=== PATIENT | male | born 1970 | race Caucasian/White ===

== ENCOUNTER 2017-09-27 10:45 | Inpatient (IN) | payer OTHER ==
[~2017-09-27] VITALS: Ht 170.2 cm; Wt 85.8 kg
[2017-09-27] MEDS ORDERED: SODIUM CHLORIDE 0.9% 1000ML 1,000 ML IV ONE ×2 (11:15)
[2017-09-27] MEDS ORDERED: METO25TA56 PO (11:17)
[2017-09-27] MEDS ORDERED: CANA1TAB PO (11:17)
[2017-09-27] MEDS ORDERED: WARF3TAB6 PO (11:17)
[2017-09-27] MEDS ORDERED: FENO145T26 PO (11:17)
[2017-09-27] MEDS ORDERED: LISI40TA PO (11:17)
[2017-09-27] MEDS ORDERED: NVLG (11:17)
[2017-09-27] MEDS ORDERED: ATOR-26 PO (11:17)
[2017-09-27 11:23] LABS: BASO % 0.1 %; BASO ABS # 0.01 K/uL (0-0.2); EOS % 0.1 %; EOS ABS # 0.02 K/uL (0-0.5); HEMATOCRIT 49.6 % (42-52); IG# 0.04 K/uL (0.00-0.02); LYMPH ABS # 0.14 K/uL (1.2-3.4); MEAN CELL VOLUME 85.1 fL (80-100); MEAN CORPUSCULAR HEMOGLOBIN 29.2 pg (25-34); MEAN CORPUSCULAR HGB CONC 34.3 g/dl (32-36); MEAN PLATELET VOLUME 11.3 fL (7.4-10.4); MONO ABS # 0.44 K/uL (0.11-0.59); NEUT % 95.5 %; NEUT ABS # 14.01 K/uL (1.4-6.5); PLATELET COUNT 177 K/uL (130-400); RED CELL DISTRIBUTION WIDTH CV 15.5 % (11.5-14.5); RED CELL DISTRIBUTION WIDTH SD 47.9 fL (36.4-46.3); WHITE BLOOD COUNT 14.66 K/uL (4.8-10.8)
--- NOTE | 2017-09-27 11:23 | EMERGENCY ROOM VISIT NOTE ---
History First contact with patient: 10:57 Chief Complaint: VOMITING Stated Complaint: ILLNESS Nursing Triage Summary: Patient states he woke up this AM and was feeling nauseated , light headed and vomitted once. Patient is a diabetic so he checked his BSG and it was 134. Patient went to work and again vomitted went to be seen at [facility] but was diaphoretic and was sent to the ER for evaluation. Patient also c/o of discomfort in neck and between shoulder blades. Denies chest pain or SOB. History of Present Illness The patient is a 47 year old male who presents to the Emergency Room with complaints of nausea, vomiting and lightheadedness that started this morning. The patient denies any chest pain, difficulty breathing, fever or chills. He did have one bout of diarrhea yesterday. The patient is a type I diabetic. He has an insulin pump. He checked his blood sugar at 6 AM this morning. It was 134. The pump continues to run. 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 Hypertension Social History Smoking Status: Never Smoker Current/Historical Medications Scheduled Atorvastatin (Lipitor), 80 MG PO QPM Canagliflozin (Invokana), 100 MG PO DAILY Fenofibrate (Tricor), 48 MG PO DAILY Insulin Aspart (Novolog), SLIDING SCALE Lisinopril (Prinivil), 40 MG PO DAILY Metoprolol Tartrate (Lopressor) (Lopressor), 25 MG PO BID Warfarin Sod (Jantoven), 3 MG PO DAILY Physical Exam Vital Signs Date Time Temp Pulse Resp B/P (MAP) Pulse Ox O2 Delivery O2 Flow Rate FiO2 09/27/17 14:00 112 18 122/72 97 Room Air 09/27/17 13:01 104 18 112/67 97 Room Air 09/27/17 12:34 104 09/27/17 12:25 101 18 115/59 98 Room Air 09/27/17 11:33 92 18 105/65 97 Room Air 09/27/17 10:48 36.9 92 18 92/55 95 Room Air Physical Exam GENERAL: 47-year-old male, mildly acutely ill in appearance,, nondiaphoretic, well-developed well-nourished. SKIN: The skin was dry HEAD: Normocephalic atraumatic. MOUTH: Mucous membranes dry NECK: Supple without nuchal rigidity. No lymphadenopathy. Cervical spine is nontender. No JVD. HEART: Regular rate and rhythm without murmurs gallops or rubs. LUNGS: Clear to auscultation bilaterally without wheezes, rales or rhonchi. No accessory muscle use. ABDOMEN: Bowel sounds hypoactive..Soft, nontender, without organomegaly. No guarding or rebound tenderness. MUSCULOSKELETAL: No muscle atrophy, erythema, or edema noted. Strength 5/5 throughout. NEURO: Patient was alert and oriented to person place and time. Normal sensation to touch. No focal neurological deficits. Medical Decision & Procedures ER Provider Diagnostic Interpretation: Chest/abdominal x-rays IMPRESSION: 1. No active disease in the chest. 2. Nonobstructed abdominal bowel gas pattern. Electronically signed by: Brady Lafleur M.D. 09/27/2017 12:06 PM Dictated Date/Time: 09/27/2017 12:03 PM The status of this report is Signed. Draft = Not yet reviewed or approved by Radiologist. Signed = Reviewed and approved by Radiologist. Laboratory Results 09/27/17 10:55 Red Blood Count 5.83, Mean Corpuscular Volume 85.1, Mean Corpuscular Hemoglobin 29.2, Mean Corpuscular Hemoglobin Concent 34.3, Mean Platelet Volume 11.3, Neutrophils (%) (Auto) 95.5, Lymphocytes (%) (Auto) 1.0, Monocytes (%) (Auto) 3.0, Eosinophils (%) (Auto) 0.1, Basophils (%) (Auto) 0.1, Neutrophils # (Auto) 14.01, Lymphocytes # (Auto) 0.14, Monocytes # (Auto) 0.44, Eosinophils # (Auto) 0.02, Basophils # (Auto) 0.01 09/27/17 10:55 Test 09/27/17 10:55 09/27/17 11:10 09/27/17 12:25 White Blood Count 14.66 K/uL (4.8-10.8) Red Blood Count 5.83 M/uL (4.7-6.1) Hemoglobin 17.0 g/dL (14.0-18.0) Hematocrit 49.6 % (42-52) Mean Corpuscular Volume 85.1 fL (80-100) Mean Corpuscular Hemoglobin 29.2 pg (25-34) Mean Corpuscular Hemoglobin Concent 34.3 g/dl (32-36) Platelet Count 177 K/uL (130-400) Mean Platelet Volume 11.3 fL (7.4-10.4) Neutrophils (%) (Auto) 95.5 % Lymphocytes (%) (Auto) 1.0 % Monocytes (%) (Auto) 3.0 % Eosinophils (%) (Auto) 0.1 % Basophils (%) (Auto) 0.1 % Neutrophils # (Auto) 14.01 K/uL (1.4-6.5) Lymphocytes # (Auto) 0.14 K/uL (1.2-3.4) Monocytes # (Auto) 0.44 K/uL (0.11-0.59) Eosinophils # (Auto) 0.02 K/uL (0-0.5) Basophils # (Auto) 0.01 K/uL (0-0.2) RDW Standard Deviation 47.9 fL (36.4-46.3) RDW Coefficient of Variation 15.5 % (11.5-14.5) Immature Granulocyte % (Auto) 0.3 % Immature Granulocyte # (Auto) 0.04 K/uL (0.00-0.02) Prothrombin Time 28.3 SECONDS (9.0-12.0) Prothromb Time International Ratio 2.7 (0.9-1.1) Anion Gap 8.0 mmol/L (3-11) Est Creatinine Clear Calc Drug Dose 57.9 ml/min Estimated GFR () 56.4 Estimated GFR (Non- 48.7 BUN/Creatinine Ratio 15.1 (10-20) Calcium Level 8.3 mg/dl (8.5-10.1) Magnesium Level 2.0 mg/dl (1.8-2.4) Total Bilirubin 0.7 mg/dl (0.2-1) Aspartate Amino Transf (AST/SGOT) 19 U/L (15-37) Alanine Aminotransferase (ALT/SGPT) 20 U/L (12-78) Alkaline Phosphatase 98 U/L (45-117) Troponin I < 0.015 ng/ml (0-0.045) Total Protein 7.9 gm/dl (6.4-8.2) Albumin 4.0 gm/dl (3.4-5.0) Globulin 3.9 gm/dl (2.5-4.0) Albumin/Globulin Ratio 1.0 (0.9-2) Lipase 115 U/L (73-393) Procalcitonin 0.32 ng/ml (0-0.5) Bedside Lactic Acid Venous 3.22 mmol/L (0.90-1.70) Urine Color YELLOW Urine Appearance CLEAR (CLEAR) Urine pH 5.0 (4.5-7.5) Urine Specific [place] 1.030 (1.000-1.030) Urine Protein NEG (NEG) Urine Glucose (UA) 3+ (NEG) Urine Ketones NEG (NEG) Urine Occult Blood NEG (NEG) Urine Nitrite NEG (NEG) Urine Bilirubin NEG (NEG) Urine Urobilinogen NEG (NEG) Urine Leukocyte Esterase NEG (NEG) Medications Administered Medications (Trade) Dose Ordered Sig/Baudilio Route Start Time Stop Time Status Last Admin Dose Admin Sodium Chloride 1,000 ml @ 999 mls/hr Q1H1M ONCE IV 09/27/17 11:15 09/27/17 12:15 DC 09/27/17 11:01 999 MLS/HR Sodium Chloride 1,000 ml @ 999 mls/hr Q1H1M ONCE IV 09/27/17 11:15 09/27/17 12:15 DC 09/27/17 13:02 999 MLS/HR Ondansetron HCl (Zofran Inj) 4 mg Q2H PRN IV 09/27/17 11:15 09/27/17 16:07 DC 09/27/17 12:30 4 MG ECG Per My Interpretation Indication: vomiting Rate (beats per minute): 87 Rhythm: normal sinus ED Course Patient was seen and examined Vital signs including blood pressure were reviewed medications list was verified with patient Labs were obtained, and a saline lock was established An EKG was performed and reviewed by myself. The patient was put on a monitor The patient was medicated with Zofran. He was given 2 L of normal saline. The patient was reassessed. He was still nauseated. He was given an additional dose of Zofran. The case was discussed with my supervising physician and subsequently the [facility] hospitalist service who kindly agreed to admit the patient for further workup and treatment. This was discussed at length with the patient was comfortable with this plan Medical Decision Differential diagnosis: Viral versus bacterial gastroenteritis, influenza, UTI, other infectious etiology, DKA, bowel obstruction This patient is a 47-year-old male who presents to the emergency department complaining of nausea, vomiting and one episode of diarrhea last night. He also had some lightheadedness this morning and pain in his shoulder blades. On exam, he was dehydrated. He did not have any tenderness in his abdomen. He was hypotensive and tachycardic.. His labs reveal an elevated blood glucose and leukocytosis.. He also had an elevated lactate and a bump in his creatinine. It is possible that the patient came down with a gastroenteritis. Unfortunately, the patient continued to have nausea and vomiting despite treatment with antiemetics in the emergency department. I am concerned by some this patient home that he will continue to vomit and possibly go into DKA. [facility] the patient for further workup and treatment. This chart was completed in part utilizing [employer] Speech Voice Recognition software. Attempts were made to minimize the grammatical errors, random word insertions, pronoun errors and incomplete sentences. Any formal questions or concerns about the content, text or information contained within the body of this dictation should be directly addressed to the provider for clarification. Medication Reconcilliation Current Medication List: was personally reviewed by me Consults Consulting Physician: Chanel Landers Impression Primary Impression: Vomiting Additional Impression: SIRS (systemic inflammatory response syndrome) Departure Information Patient Instructions [facility] Problem Qualifiers
[2017-09-27] MEDS ORDERED: FENO48TA9 PO (11:26)
[2017-09-27] MEDS: ONDANSETRON INJ 2 MG/ML 2 ML VIAL IV PRN ×2 (11:33→12:30)
[2017-09-27 11:34] LABS: INR 2.7 (0.9-1.1)
[2017-09-27 11:36] LABS: ALT/SGPT 20 U/L (12-78); BLOOD UREA NITROGEN 25 mg/dl (7-18); CALCIUM 8.3 mg/dl (8.5-10.1); CARBON DIOXIDE 25 mmol/L (21-32); CREATININE 1.66 mg/dl (0.60-1.40); GLUCOSE 283 mg/dl (70-99); POTASSIUM 4.5 mmol/L (3.5-5.1); SODIUM 134 mmol/L (136-145)
[2017-09-27 11:41] LABS: ALKALINE PHOSPHATASE 98 U/L (45-117); AST/SGOT 19 U/L (15-37); TOTAL PROTEIN 7.9 gm/dl (6.4-8.2)
--- NOTE | 2017-09-27 12:07 | DIAGNOSTIC IMAGING REPORT ---
PA CHEST WITH ABDOMINAL SERIES CLINICAL HISTORY: Chest tightness. Vomiting. FINDINGS: A PA chest radiograph is obtained. No prior studies are available for comparison at the time of dictation. The cardiomediastinal silhouette is unremarkable. The lungs and pleural spaces are clear. No pneumothorax is seen. Chronic posttraumatic deformity is seen in the right posterior ribs. Supine and erect abdominal radiographs are obtained. No prior studies are available for comparison at the time of dictation. There is a nonobstructed abdominal bowel gas pattern. No evidence of intraperitoneal free air is seen. There are no abnormal abdominal calcifications. The lumbosacral spine and bony pelvis appear intact. IMPRESSION: 1. No active disease in the chest. 2. Nonobstructed abdominal bowel gas pattern. Electronically signed by: Brady Lafleur M.D. 09/27/2017 12:06 PM Dictated Date/Time: 09/27/2017 12:03 PM
[2017-09-27] MEDS ORDERED: ONDANSETRON INJ 2 MG/ML 2 ML VIAL IV PRN (14:30)
--- NOTE | 2017-09-27 14:39 | History and Physical ---
History & Physical Date & Time of Service: Sep 27, 2017 at 14:39 Chief Complaint: Illness Primary Care Physician: Tom Hartley M.D. 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 Patient reports he was doing well until yesterday, when he had 2 loose watery non bloody Bowel movements which resolved. This morning he woke up with nausea, mild light headedness and had an episode of vomiting. He went to work and continued to have nausea and developed stiffness at nape of neck and between shoulder blades which is non radiating, improved with stretching and currently resolved. Patient has another episode of vomiting while in ED. Reports intermittent dry cough since many days. He did not take his Invokana and his Coverage Insulin today. Denies any history of chest pain, SOB, pedal edema, diaphoresis, fever, chills, fall, head trauma, LOC, headache , change in vision, Vertigo, abdominal pain, dysuria, recent travel, sick contact, recent change in medications. Past Medical/Surgical History Medical Problems: (1) Gastroenteritis (2) SIRS (systemic inflammatory response syndrome) Past Surgical: Resection of Carcinoid of lung Family History Mother:DM I, Heart disease Father: DM II, Skin cancer Sister:Skin cancer Social History Smoking Status: Never Smoker Alcohol Use: none Drug Use: none Allergies Coded Allergies: No Known Allergies (Unverified , 09/27/17) Home Medications Scheduled Atorvastatin (Lipitor), 80 MG PO QPM Canagliflozin (Invokana), 100 MG PO DAILY Fenofibrate (Tricor), 48 MG PO DAILY Insulin Aspart (Novolog), SLIDING SCALE Lisinopril (Prinivil), 40 MG PO DAILY Metoprolol Tartrate (Lopressor) (Lopressor), 25 MG PO BID Warfarin Sod (Jantoven), 3 MG PO DAILY Review of Systems See HPI for pertinent positives & negatives. A total of 10 systems reviewed and were otherwise negative. Physical Exam Vital Signs Date Time Temp Pulse Resp B/P (MAP) Pulse Ox O2 Delivery O2 Flow Rate FiO2 09/27/17 14:00 112 18 122/72 97 Room Air 09/27/17 13:01 104 18 112/67 97 Room Air 09/27/17 12:34 104 09/27/17 12:25 101 18 115/59 98 Room Air 09/27/17 11:33 92 18 105/65 97 Room Air 09/27/17 10:48 36.9 92 18 92/55 95 Room Air General Appearance: WD/WN, no apparent distress Head: normocephalic, atraumatic Eyes: normal inspection, PERRL, EOMI, sclerae normal ENT: normal ENT inspection, hearing grossly normal Neck: supple, trachea midline Respiratory/Chest: chest non-tender, lungs clear, normal breath sounds, no respiratory distress, no accessory muscle use Cardiovascular: regular rate, rhythm, no edema, no murmur, + tachycardia Abdomen/GI: normal bowel sounds, non tender, soft Back: normal inspection Extremities/Musculoskelatal: normal inspection, no pedal edema, + pertinent finding (RUE Insulin pump) Neurologic/Psych: chemicals distiller II-XII nml as tested, no motor/sensory deficits, alert, normal mood/affect, oriented x 3 Skin: normal color, warm/dry Diagnostics Laboratory Results Results Past 24 Hours Test 09/27/17 10:55 09/27/17 11:10 09/27/17 11:15 09/27/17 12:25 Range/Units White Blood Count 14.66 4.8-10.8 K/uL Red Blood Count 5.83 4.7-6.1 M/uL Hemoglobin 17.0 14.0-18.0 g/dL Hematocrit 49.6 42-52 % Mean Corpuscular Volume 85.1 80-100 fL Mean Corpuscular Hemoglobin 29.2 25-34 pg Mean Corpuscular Hemoglobin Concent 34.3 32-36 g/dl Platelet Count 177 130-400 K/uL Mean Platelet Volume 11.3 7.4-10.4 fL Neutrophils (%) (Auto) 95.5 % Lymphocytes (%) (Auto) 1.0 % Monocytes (%) (Auto) 3.0 % Eosinophils (%) (Auto) 0.1 % Basophils (%) (Auto) 0.1 % Neutrophils # (Auto) 14.01 1.4-6.5 K/uL Lymphocytes # (Auto) 0.14 1.2-3.4 K/uL Monocytes # (Auto) 0.44 0.11-0.59 K/uL Eosinophils # (Auto) 0.02 0-0.5 K/uL Basophils # (Auto) 0.01 0-0.2 K/uL RDW Standard Deviation 47.9 36.4-46.3 fL RDW Coefficient of Variation 15.5 11.5-14.5 % Immature Granulocyte % (Auto) 0.3 % Immature Granulocyte # (Auto) 0.04 0.00-0.02 K/uL Prothrombin Time 28.3 9.0-12.0 SECONDS Prothromb Time International Ratio 2.7 0.9-1.1 Sodium Level 134 136-145 mmol/L Potassium Level 4.5 3.5-5.1 mmol/L Chloride Level 101 98-107 mmol/L Carbon Dioxide Level 25 21-32 mmol/L Anion Gap 8.0 3-11 mmol/L Blood Urea Nitrogen 25 7-18 mg/dl Creatinine 1.66 0.60-1.40 mg/dl Est Creatinine Clear Calc Drug Dose 57.9 ml/min Estimated GFR () 56.4 Estimated GFR (Non- 48.7 BUN/Creatinine Ratio 15.1 10-20 Random Glucose 283 70-99 mg/dl Calcium Level 8.3 8.5-10.1 mg/dl Magnesium Level 2.0 1.8-2.4 mg/dl Total Bilirubin 0.7 0.2-1 mg/dl Aspartate Amino Transf (AST/SGOT) 19 15-37 U/L Alanine Aminotransferase (ALT/SGPT) 20 12-78 U/L Alkaline Phosphatase 98 45-117 U/L Troponin I < 0.015 0-0.045 ng/ml Total Protein 7.9 6.4-8.2 gm/dl Albumin 4.0 3.4-5.0 gm/dl Globulin 3.9 2.5-4.0 gm/dl Albumin/Globulin Ratio 1.0 0.9-2 Lipase 115 73-393 U/L Bedside Lactic Acid Venous 3.22 0.90-1.70 mmol/L Bedside Glucose 243 70-99 mg/dl Urine Color YELLOW Urine Appearance CLEAR CLEAR Urine pH 5.0 4.5-7.5 Urine Specific [place] 1.030 1.000-1.030 Urine Protein NEG NEG Urine Glucose (UA) 3+ NEG Urine Ketones NEG NEG Urine Occult Blood NEG NEG Urine Nitrite NEG NEG Urine Bilirubin NEG NEG Urine Urobilinogen NEG NEG Urine Leukocyte Esterase NEG NEG Test 09/27/17 14:21 Range/Units Microbiology Results 09/27/17 Blood Culture, Ordered Pending 09/27/17 Blood Culture, Ordered Pending Diagnostic Radiology CXR/ABd X ray: 1. No active disease in the chest. 2. Nonobstructed abdominal bowel gas pattern. EKG EKG: NSR Impression Assessment and Plan Possible Sepsis: Meets SIRS criteria Possible Source: Gastroenteritis Lactate: 2.2 Procalcitonin: pending Ordered Blood cultures IV fluids Started on Zosyn empirically CXR/ABD X ray:No active disease in the chest. Nonobstructed abdominal bowel gas pattern. 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
[2017-09-27] MEDS ORDERED: PHARMACY GLYCEMIC MGMT CONSULT PRN (15:08)
[2017-09-27] MEDS ORDERED: INSULIN ASPART 100 UNITS/ML VIAL SC PRN (15:15)
[2017-09-27] MEDS ORDERED: GLUCOSE 40% GEL 15 GM TUBE PO PRN (15:15)
[2017-09-27] MEDS ORDERED: DEXTROSE 50% 50 ML SYR IV PRN (15:15)
[2017-09-27] MEDS ORDERED: GLUCAGON FOR INJ 1 MG VIAL SQ PRN (15:15)
[2017-09-27] MEDS ORDERED: GLUCOSE 10 TABS/TUBE PO PRN (15:15)
--- NOTE | 2017-09-27 15:19 | Pharmacy Progress Note ---
Glycemic Control Intl Consult Date of Service Sep 27, 2017. Scope Glycemic Pharmacist consulted by Dr Bartholomew on 09/27/17 for glycemic control and to write orders per [facility] inpatient glycemic control protocol Objective Weight (Kilograms): 85.000 Accuchecks BSG (last 24hrs): Test 09/27/17 10:55 09/27/17 11:15 Random Glucose 283 mg/dl (70-99) Bedside Glucose 243 mg/dl (70-99) Laboratory Data (last 24hrs) Test 09/27/17 10:55 Anion Gap 8.0 mmol/L BUN/Creatinine Ratio 15.1 Blood Urea Nitrogen 25 mg/dl Creatinine 1.66 mg/dl Potassium Level 4.5 mmol/L Sodium Level 134 mmol/L White Blood Count 14.66 K/uL Red Blood Count 5.83 M/uL Hemoglobin 17.0 g/dL Hematocrit 49.6 % Mean Corpuscular Volume 85.1 fL Mean Corpuscular Hemoglobin 29.2 pg Mean Corpuscular Hemoglobin Concent 34.3 g/dl Platelet Count 177 K/uL Mean Platelet Volume 11.3 fL Neutrophils (%) (Auto) 95.5 % Lymphocytes (%) (Auto) 1.0 % Monocytes (%) (Auto) 3.0 % Eosinophils (%) (Auto) 0.1 % Basophils (%) (Auto) 0.1 % Neutrophils # (Auto) 14.01 K/uL Lymphocytes # (Auto) 0.14 K/uL Monocytes # (Auto) 0.44 K/uL Eosinophils # (Auto) 0.02 K/uL Basophils # (Auto) 0.01 K/uL Recent Pertinent Medications Outpatient Anti-diabetic Regimen: * Novolog pump * basal rate: 5913-3334 1.9 unit/hr * basal rate: 0300- 0700 2.1 unit/hr * basal rate: 0700- 1200: 1.9 unit/hr * basal rate: 1200 - 1500: 1.7 unit/hr * basal rate: 1500- 0000: 1.75 unit/hr * carbohydrate ratio: 3783-5189: 7 * carbohydrate ratio: 9917-0005: 3 * carbohydrate ratio: 5019-7695: 5 * correction factor: 30 Risk Factors for Insulin Resistance: * Infection: gastritis * Diet: type 1 diabetic diet Assessment & Plan ASSESSMENT: * Mr Summers is a 47 y/o M with unknown control of his type 1 diabetes ... patient is admitted with gastritis. I personally went and spoke with the patient regarding his insulin pump. I reviewed all relevant information and we agreed that he could continue the pump. Pt is to manage BSGs with insulin pump per outpatient settings. * RN will have patient read and sign agreement [id number] Insulin Pump Therapy Patient Agreement. * RN will provide and explain form [id number] Flowsheet for Patient * Patient will document their insulin dose given on NS-824 which is kept at the bedside, available to caregivers upon request, and which becomes part of the permanent medical record. If at any time the patients condition evidences that he/she is not able to manage the insulin pump (i.e. frequent hypo/hyperglycemia) Pharmacy will assume glycemic control by discontinuing the pump & managing with SQ basal bolus insulin regimen for the interim. * If patient cannot manage own pump recommend the following for hypoglycemia/ hyperglycemia: * Lantus 15 units twice daily/ 23 units twice daily * goal range 140-180 / 110-140 * correction factor 30 / 15 or 20 * carbohydrate ratio of 10 / 3 * Please note that the plan above was derived based on current level of insulin resistance and hospital stress. These recommendations are appropriate for inpatient admission only. Plan of care upon discharge will need to be reassessed to avoid potential outpatient hypo/hyperglycemia. Thank you.
[2017-09-27] MEDS: ACETAMINOPHEN 325 MG TAB PO PRN (15:53)
[2017-09-27] MEDS ORDERED: IV FLUIDS COMPLETED PRN (16:00)
[2017-09-27] MEDS ORDERED: PIPERACILL/TAZOBAC CONSULT ACTIVE PRN (16:10)
[2017-09-27] MEDS ORDERED: PIPERACILL/TAZOBAC IV 3.375 GM in DEXTROSE 5% 100ML IV STA (16:12)
[2017-09-27] MEDS: NovoLOG INSULIN PUMP SCH ×2 (16:15→21:00)
[2017-09-27] MEDS ORDERED: FENOFIBRATE 48 MG TAB PO SCH (16:30)
[2017-09-27] MEDS ORDERED: WARFARIN SOD 3 MG TAB PO SCH (16:30)
[2017-09-27 16:53] VITALS: BP 105/60; PULSE 124; TEMP 37.9; O2SAT 96; BMI 29.5
[2017-09-27] MEDS: SODIUM CHLORIDE 0.9% 1000ML 1,000 ML IV SCH (17:01)
[2017-09-27] MEDS: FAMOTIDINE 20 MG TAB PO SCH (17:38)
[2017-09-27] MEDS ORDERED: NURSING VERBAL MED ORDER ONE (18:00)
[2017-09-27 19:30] VITALS: BP 106/67; PULSE 105; TEMP 37.3; O2SAT 96
[2017-09-27] MEDS ORDERED: ATORVASTATIN 20 MG TAB PO SCH (21:00)
[2017-09-27] MEDS: METOPROLOL TARTRATE 25 MG TAB PO SCH (21:15)
[2017-09-27] MEDS: PIPERACILL/TAZOBAC IV 3.375 GM in DEXTROSE 5% 100ML IV SCH (21:53)
[2017-09-28 00:26] VITALS: BP 104/64; PULSE 98; TEMP 38; O2SAT 94
[2017-09-28] MEDS: ACETAMINOPHEN 325 MG TAB PO PRN (00:35)
[2017-09-28] MEDS: SODIUM CHLORIDE 0.9% 1000ML 1,000 ML IV SCH ×2 (03:15→13:53)
[2017-09-28 03:56] VITALS: BP 110/69; PULSE 81; TEMP 36.9; O2SAT 92
[2017-09-28] MEDS: PIPERACILL/TAZOBAC IV 3.375 GM in DEXTROSE 5% 100ML IV SCH ×2 (05:55→13:53)
[2017-09-28 07:00] LABS: BASO % 0.2 %; BASO ABS # 0.01 K/uL (0-0.2); EOS % 1.1 %; EOS ABS # 0.06 K/uL (0-0.5); HEMATOCRIT 43.2 % (42-52); HEMOGLOBIN 14.5 g/dL (14.0-18.0); IG# 0.01 K/uL (0.00-0.02); LYMPH ABS # 0.66 K/uL (1.2-3.4); MEAN CELL VOLUME 86.4 fL (80-100); MEAN CORPUSCULAR HGB CONC 33.6 g/dl (32-36); MEAN PLATELET VOLUME 10.7 fL (7.4-10.4); MONO % 9.2 %; MONO ABS # 0.51 K/uL (0.11-0.59); NEUT % 77.3 %; NEUT ABS # 4.27 K/uL (1.4-6.5); PLATELET COUNT 138 K/uL (130-400); RED CELL DISTRIBUTION WIDTH CV 15.8 % (11.5-14.5); RED CELL DISTRIBUTION WIDTH SD 50.1 fL (36.4-46.3); WHITE BLOOD COUNT 5.52 K/uL (4.8-10.8)
[2017-09-28] MEDS: NovoLOG INSULIN PUMP SCH ×2 (07:00→11:00)
[2017-09-28 07:12] LABS: INR 4.1 (0.9-1.1)
[2017-09-28 07:34] LABS: CALCIUM 7.2 mg/dl (8.5-10.1); CREATININE 0.95 mg/dl (0.60-1.40); POTASSIUM 3.4 mmol/L (3.5-5.1)
[2017-09-28 08:07] VITALS: BP 109/63; PULSE 72; TEMP 36.5; O2SAT 97
[2017-09-28 08:08] LABS: HEMOGLOBIN A1C 7.4 % (4.5-5.6)
[2017-09-28] MEDS: FAMOTIDINE 20 MG TAB PO SCH (08:32)
[2017-09-28] MEDS: METOPROLOL TARTRATE 25 MG TAB PO SCH (08:32)
[2017-09-28] MEDS ORDERED: WARFARIN SOD 3 MG TAB PO SCH (09:00)
[2017-09-28 11:54] VITALS: BP 107/67; PULSE 89; TEMP 36.8; O2SAT 95
[2017-09-28 13:29] VITALS: Ht 170.2 cm; Wt 85.8 kg
--- NOTE | 2017-09-28 14:31 | Pharmacy Progress Note ---
Pharmacy Glycemic Short Note 2 Date of Service Sep 28, 2017. Outpatient Anti-diabetic Regimen: * Novolog pump * basal rate: 2401-2918 1.9 unit/hr * basal rate: 0300- 0700 2.1 unit/hr * basal rate: 0700- 1200: 1.9 unit/hr * basal rate: 1200 - 1500: 1.7 unit/hr * basal rate: 1500- 0000: 1.75 unit/hr * carbohydrate ratio: 4000-8194: 7 * carbohydrate ratio: 0101-1983: 3 * carbohydrate ratio: 1970-8809: 5 * correction factor: 30 Risk Factors for Insulin Resistance: * Infection: gastritis currently on Zosyn * Diet: type 1 diabetic diet Assessment & Plan ASSESSMENT: * Mr Summers is a 47 y/o M with excellent control of his type 1 diabetes ... patient is admitted with gastritis. I personally went and spoke with the patient regarding his insulin pump. I reviewed all relevant information and we agreed that he could continue the pump. Pt is to manage BSGs with insulin pump per outpatient settings. * RN will have patient read and sign agreement [id number] Insulin Pump Therapy Patient Agreement. * RN will provide and explain form [id number] Flowsheet for Patient * Patient will document their insulin dose given on NS-824 which is kept at the bedside, available to caregivers upon request, and which becomes part of the permanent medical record. * Today patient has been having some low blood sugars prior to meals and he admits this is not normal. His meals are typically more carbohydrate centered. Reduced basal rate by 20% for now to see how this works for dinner and bedtime. Patient may leave tonight so do not want to take pump off immediately and patient wants to try this approach first. PLAN FOR INPATIENT GLYCEMIC CONTROL: * Continue insulin pump at 20% reduced rate * if patient stays and 20% reduction is appropriate, will need to call nurse to remind patient to renew the decreased basal rate * if patient stays and the reduction is not appropriate, * remove pump and start * Lantus 12 units x 1 ; Novolog CF 30 carbohydrate ratio of 8 PLAN FOR DISCHARGE: * Patient is well controlled and follows with outpatient lumber mover. Can followup there with her. Please note that he admits to low blood sugars with addition of Invokana so may benefit from reduction in basal rates.
--- NOTE | 2017-09-28 15:32 | Progress Note ---
Subjective Date of Service: Sep 28, 2017. Subjective Pt evaluation today including: conversation w/ patient, physical exam, lab review, review of studies, review of inpatient medication list Saw/examined the patient in room 239 No problems/issues to note today, nausea improved, no vomiting/diarrhea No other issues at this time Problem List Medical Problems: (1) Vomiting Status: Acute Review of Systems Constitutional: + weakness, No fever, No chills Respiratory: No cough, No sputum, No shortness of breath Cardiac: No chest pain Heme: No abnormal bleeding/bruising Medications Current Inpatient Medications Medications (Trade) Dose Ordered Sig/Baudilio Route Start Time Stop Time Status Last Admin Dose Admin Acetaminophen (Tylenol Tab) 650 mg Q4H PRN PO 09/27/17 14:30 10/27/17 14:29 09/28/17 00:35 650 MG Ondansetron HCl (Zofran Inj) 4 mg Q6H PRN IV 09/27/17 14:30 10/27/17 14:29 Sodium Chloride 1,000 ml @ 150 mls/hr Q6H40M IV 09/27/17 16:45 10/27/17 16:44 09/28/17 13:53 150 MLS/HR Miscellaneous Information (Consult Glycemic Management Pharmacy) 1 ea UD PRN N/A 09/27/17 15:08 10/27/17 15:07 Atorvastatin Calcium (Lipitor Tab) 80 mg QPM PO 09/27/17 21:00 10/27/17 20:59 09/27/17 21:15 80 MG Fenofibrate (Tricor Tab) 48 mg DAILY PO 09/27/17 16:30 10/27/17 16:29 Future hold 09/28/17 08:32 48 MG Metoprolol Tartrate (Lopressor Tab) 25 mg BID PO 09/27/17 21:00 10/27/17 20:59 09/28/17 08:32 25 MG Famotidine (Pepcid Tab) 20 mg BID PO 09/27/17 21:00 10/27/17 20:59 09/28/17 08:32 20 MG Miscellaneous Information (Consult) 1 ea UD PRN N/A 09/27/17 16:10 10/27/17 16:09 Insulin Aspart (novoLOG INSULIN PUMP) 1 ea ACHS N/A 09/27/17 16:00 4/28/18 15:59 09/28/17 11:00 1 EA Insulin Aspart (novoLOG ASPART) SLIDING SCALE PRN PRN SC 09/27/17 15:15 10/27/17 15:14 Glucose (Glucose 40% Gel) 15-30 GRAMS 15 GRAMS... UD PRN PO 09/27/17 15:15 10/27/17 15:14 Glucose (Glucose Chew Tab) 4-8 Tablets 4 Tabl... UD PRN PO 09/27/17 15:15 10/27/17 15:14 Glucagon (Glucagon Inj) 1 mg UD PRN SQ 09/27/17 15:15 10/27/17 15:14 Dextrose (Dextrose 50% 50ML Syringe) 25-50ML OF 50% DW IV FOR... UD PRN IV 09/27/17 15:15 10/27/17 15:14 Miscellaneous (Iv Fluids Completed) 1 ea PRN PRN N/A 09/27/17 16:00 09/27/18 15:59 Piperacillin Sod/ Tazobactam Sod 3.375 gm/Dextrose 115 ml @ 28.75 mls/ hr Q8H IV 09/27/17 22:00 10/07/17 21:59 09/28/17 13:53 28.75 MLS/HR Warfarin Sodium (Coumadin Tab) 3 mg QAM PO 09/28/17 09:00 10/28/17 08:59 Objective Vital Signs Date Time Temp Pulse Resp B/P (MAP) Pulse Ox O2 Delivery O2 Flow Rate FiO2 09/28/17 12:00 Room Air 09/28/17 11:54 36.8 89 20 107/67 (80) 95 Room Air 09/28/17 08:07 36.5 72 18 109/63 (78) 97 09/28/17 08:00 Room Air 09/28/17 04:00 Room Air 09/28/17 03:56 36.9 81 18 110/69 (83) 92 Room Air 09/28/17 00:26 38.0 98 18 104/64 (77) 94 Room Air 09/27/17 23:59 Room Air 09/27/17 20:00 Room Air 09/27/17 19:30 37.3 105 20 106/67 (80) 96 Room Air 09/27/17 16:53 37.9 124 18 105/60 96 Room Air Physical Exam General Appearance: no apparent distress Respiratory/Chest: no respiratory distress, no accessory muscle use Cardiovascular: regular rate, rhythm, no edema, no murmur Extremities: normal inspection, no pedal edema Neurologic/Psychiatric: no motor/sensory deficits, alert, normal mood/affect Laboratory Results Last 24 Hours Test 09/27/17 16:33 09/27/17 17:17 09/27/17 20:10 09/28/17 06:29 Bedside Glucose 111 mg/dl 110 mg/dl 66 mg/dl Lactic Acid Level 1.8 mmol/L Test 09/28/17 06:32 09/28/17 06:46 09/28/17 06:58 09/28/17 07:10 White Blood Count 5.52 K/uL Red Blood Count 5.00 M/uL Hemoglobin 14.5 g/dL Hematocrit 43.2 % Mean Corpuscular Volume 86.4 fL Mean Corpuscular Hemoglobin 29.0 pg Mean Corpuscular Hemoglobin Concent 33.6 g/dl Platelet Count 138 K/uL Mean Platelet Volume 10.7 fL Neutrophils (%) (Auto) 77.3 % Lymphocytes (%) (Auto) 12.0 % Monocytes (%) (Auto) 9.2 % Eosinophils (%) (Auto) 1.1 % Basophils (%) (Auto) 0.2 % Neutrophils # (Auto) 4.27 K/uL Lymphocytes # (Auto) 0.66 K/uL Monocytes # (Auto) 0.51 K/uL Eosinophils # (Auto) 0.06 K/uL Basophils # (Auto) 0.01 K/uL RDW Standard Deviation 50.1 fL RDW Coefficient of Variation 15.8 % Immature Granulocyte % (Auto) 0.2 % Immature Granulocyte # (Auto) 0.01 K/uL Prothrombin Time 41.4 SECONDS Prothromb Time International Ratio 4.1 Sodium Level 139 mmol/L Potassium Level 3.4 mmol/L Chloride Level 108 mmol/L Carbon Dioxide Level 24 mmol/L Anion Gap 7.0 mmol/L Blood Urea Nitrogen 18 mg/dl Creatinine 0.95 mg/dl Est Creatinine Clear Calc Drug Dose 101.7 ml/min Estimated GFR () 110.8 Estimated GFR (Non- 95.6 BUN/Creatinine Ratio 19.0 Random Glucose 59 mg/dl Estimated Average Glucose 166 mg/dl Hemoglobin A1c 7.4 % Calcium Level 7.2 mg/dl Magnesium Level 2.1 mg/dl Bedside Glucose 55 mg/dl 61 mg/dl 68 mg/dl Test 09/28/17 08:29 09/28/17 11:44 09/28/17 12:00 Bedside Glucose 102 mg/dl 69 mg/dl 65 mg/dl Assessment and Plan This is a 47 year old male with a PMH of type 1 DM with an insulin pump, hx. 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 of Esteban's - presents with nausea/ vomiting Viral Gastroenteritis - initially met sepsis criteria with elevated white count and lactic acidosis - unlikely bacterial infection; elevation in blood work likely due to dehydration - WBC now normalized - vitals stable - low procalcitonin - no nausea or vomiting - plan to d/c home today Acute Kidney Injury - resolved DM1 - ha1c = 7.4% - continue insulin pump settings HTN - restart home medications Hx. of PE - no shortness of breath - continue Coumadin, with goal INR of 2-3 DVT ppx - Coumadin FULL CODE
--- NOTE | 2017-09-28 15:35 | Discharge Instructions ---
Discharge Instructions Date of Service Sep 28, 2017. Admission Reason for Admission: Gastroenteritis Discharge Discharge Diagnosis / Problem: Gastroenteritis Discharge Goals Goal(s): Decrease discomfort, Improve function, Diagnostic testing, Therapeutic intervention Activity Recommendations Activity Limitations: resume your previous activity . Instructions / Follow-Up Instructions / Follow-Up Please follow-up with your primary care doctor in [facility] within one week Outpatient blood work in one week to check electrolytes and CBC Current Hospital Diet Patient's current hospital diet: Diabetes Type 1 Diet Discharge Diet Recommended Diet: Diabetes Type 1 Diet Pending Studies Studies pending at discharge: no Laboratory Results Hemoglobin A1c Test 09/28/17 06:32 Range/Units Estimated Average Glucose 166 mg/dl Hemoglobin A1c 7.4 H 4.5-5.6 % Medical Emergencies . Who to Call and When: Medical Emergencies: If at any time you feel your situation is an emergency, please call 911 immediately. . Non-Emergent Contact Non-Emergency issues call your: Primary Care Provider . . "Provider Documentation" section prepared by Kathryn Restrepo. .
[2017-09-28 15:37] VITALS: BP 107/67; PULSE 89; TEMP 36.8; O2SAT 95
--- NOTE | 2017-09-28 15:37 | Discharge Summary ---
Discharge Summary Date of Service Sep 28, 2017. Discharge Summary Admission Date: Sep 27, 2017 at 14:28 Discharge Date: Sep 28, 2017 Discharge Disposition: Home Principal Diagnosis: Viral Gastroenteritis Type 1 Diabetes Hx. of PE - long-term anticoagulation use HTN Acute Kidney Injury - resolved Medication Reconciliation Continued Medications: Atorvastatin (Lipitor) 80 Mg Tab 80 MG PO QPM, TAB Canagliflozin (Invokana) 100 Mg Tab 100 MG PO DAILY Fenofibrate (Tricor) 48 Mg Tab 48 MG PO DAILY, TAB Insulin Aspart (Novolog) 100 Units/Ml Inj SLIDING SCALE INSULIN PUMP Lisinopril (Prinivil) 40 Mg Tab 40 MG PO DAILY, TAB Metoprolol Tartrate (Lopressor) (Lopressor) 25 Mg Tab 25 MG PO BID, TAB Warfarin Sod (Jantoven) 3 Mg Tab 3 MG PO DAILY, TAB Admission Information HPI (per Admitting provider): Patient is a 47 yr male with PMH of DM Type I, Esteban's disease, HTN, Pulmonary embolism on chronic anticoagulation, 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 Patient reports he was doing well until yesterday, when he had 2 loose watery non bloody Bowel movements which resolved. This morning he woke up with nausea, mild light headedness and had an episode of vomiting. He went to work and continued to have nausea and developed stiffness at nape of neck and between shoulder blades which is non radiating, improved with stretching and currently resolved. Patient has another episode of vomiting while in ED. Reports intermittent dry cough since many days. He did not take his Invokana and his Coverage Insulin today. Denies any history of chest pain, SOB, pedal edema, diaphoresis, fever, chills, fall, head trauma, LOC, headache , change in vision, Vertigo, abdominal pain, dysuria, recent travel, sick contact, recent change in medications. Physical Exam (per Admitting): General Appearance: WD/WN, no apparent distress Head: normocephalic, atraumatic Eyes: normal inspection, PERRL, EOMI, sclerae normal ENT: normal ENT inspection, hearing grossly normal Neck: supple, trachea midline Respiratory/Chest: chest non-tender, lungs clear, normal breath sounds, no respiratory distress, no accessory muscle use Cardiovascular: regular rate, rhythm, no edema, no murmur, + tachycardia Abdomen/GI: normal bowel sounds, non tender, soft Back: normal inspection Extremities/Musculoskelatal: normal inspection, no pedal edema, + pertinent finding (RUE Insulin pump) 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 of Ayden's - presents with nausea/ vomiting Viral Gastroenteritis - initially met sepsis criteria with elevated white count and lactic acidosis - unlikely bacterial infection; elevation in blood work likely due to dehydration - WBC now normalized - vitals stable - low procalcitonin - no nausea or vomiting - plan to d/c home today Acute Kidney Injury - resolved DM1 - ha1c = 7.4% - continue insulin pump settings HTN - restart home medications Hx. of PE - no shortness of breath - continue Coumadin, with goal INR of 2-3 DVT ppx - Coumadin FULL CODE Total time spent on discharge = 20 minutes This includes examination of the patient, discharge planning, medication reconciliation, and communication with other providers. Discharge Instructions Please follow-up with your primary care doctor in [facility] within one week Outpatient blood work in one week to check electrolytes and CBC
== END 2017-09-28 16:22 | disposition home or self-care (01) | DRG 872 ==
LOC: EDBD 10:45 → C.EDC 10:46 → C.2T 14:28 → ENRESERV 14:46 → CANBEDREQ 17:29
PROVIDERS: ADMIT Internal Medicine; ATTEND Family Medicine
DX: A41.89 Other specified sepsis (principal); E24.9 Cushing's syndrome, unspecified; I10 Essential (primary) hypertension; Z79.01 Long term (current) use of anticoagulants; Z79.4 Long term (current) use of insulin; Z86.711 Personal history of pulmonary embolism; R65.20 Severe sepsis without septic shock; B97.89 Other viral agents as the cause of diseases classified elsewhere; E10.9 Type 1 diabetes mellitus without complications; Z85.110 Personal history of malignant carcinoid tumor of bronchus and lung; N17.9 Acute kidney failure, unspecified; A08.4 Viral intestinal infection, unspecified